=== PATIENT | male | born 1960 | race Caucasian/White ===

== ENCOUNTER 2019-03-02 06:20 | Day surgery (SDC) | payer BC ==
[~2019-03-02] VITALS: Ht 175.3 cm; Wt 88.0 kg
[~2019-03-02 06:20] MED LIST: ALLO300T PO; ATOR10TA PO; CHOL10003 PO; CYAN1TAB29 PO; LISI5TAB7 PO; MULT-658 PO; PANT40TA5 PO
[2019-03-02] MEDS ORDERED: LACTATED RINGERS 1,000 ML IV SCH ×2 (06:28→08:39)
[2019-03-02 06:31] VITALS: BP 133/87
[2019-03-02] MEDS ORDERED: BUPIVACAINE/PF-EPI 0.5% 1:200K ONE (06:58)
[2019-03-02] MEDS ORDERED: MIDAZOLAM 1 MG/ML, 2ML ONE (07:11)
[2019-03-02] MEDS ORDERED: FENTANYL PF 250 MCG/5ML ONE (07:11)
[2019-03-02] MEDS ORDERED: PROPOFOL 50 ML ONE (07:11)
[2019-03-02] MEDS ORDERED: CEFAZOLIN 1,000 MG ONE (07:24)
[2019-03-02] MEDS ORDERED: DEXAMETHASONE 4 MG/ML, 1ML ONE (07:24)
[2019-03-02] MEDS ORDERED: SUCCINYLCHOLINE 20 MG/ML, 10ML ONE (07:24)
[2019-03-02] MEDS ORDERED: ONDANSETRON 2MG/ML, 2ML ONE (07:24)
[2019-03-02] MEDS ORDERED: ROCURONIUM 10 MG/ML,10ML ONE (07:24)
[2019-03-02] MEDS ORDERED: GLYCOPYRROLATE 0.2MG/1ML, 5ML ONE (07:24)
[2019-03-02] MEDS ORDERED: EPHEDRINE 50 MG/ML, 1ML IM PRN (08:00)
[2019-03-02] MEDS ORDERED: MEPERIDINE/PF 25MG/0.5ML IVPush PRN (08:00)
[2019-03-02] MEDS ORDERED: DIPHENHYDRAMINE 50 MG/ML, 1ML IVPush PRN (08:00)
[2019-03-02] MEDS ORDERED: PROMETHAZINE 25 MG SUPP PR PRN (08:00)
[2019-03-02] MEDS ORDERED: METOPROLOL 1 MG/ML, 5ML IV PRN (08:00)
[2019-03-02] MEDS ORDERED: ONDANSETRON 2MG/ML, 2ML IV PRN (08:00)
[2019-03-02] MEDS ORDERED: PROMETHAZINE 25 MG/ML, 1ML IV PRN (08:00)
[2019-03-02] MEDS ORDERED: hydrALAzine 20 MG/ML, 1ML IV PRN (08:00)
[2019-03-02] MEDS ORDERED: MIDAZOLAM 1 MG/ML, 2ML IV PRN (08:00)
[2019-03-02] MEDS ORDERED: ONDANSETRON ODT 8 MG PO PRN (08:00)
[2019-03-02] MEDS ORDERED: MORPHINE SULFATE 4 MG/ML, 1ML IVPush PRN (08:00)
[2019-03-02] MEDS ORDERED: EPHEDRINE 50 MG/ML, 1ML IVPush PRN (08:00)
[2019-03-02] MEDS ORDERED: PROMETHAZINE 12.5 MG SUPP PR PRN (08:00)
[2019-03-02] MEDS: FENTANYL PF 100 MCG/2ML IV PRN ×4 (08:50→09:10)
[2019-03-02] MEDS ORDERED: FENTANYL PF 100 MCG/2ML ONE (08:50)
[2019-03-02] MEDS ORDERED: OXYcodone 5 MG/5 ML ORAL.SOL UDC ONE ×2 (08:50→14:32)
[2019-03-02] MEDS ORDERED: KETOROLAC 30 MG/1 ML IVPush PRN (09:00)
[2019-03-02] MEDS ORDERED: ONDANSETRON 2MG/ML, 2ML IVPush PRN (09:00)
[2019-03-02] MEDS ORDERED: morphine SULFATE 10 MG/ML, 1ML IVPush PRN (09:00)
[2019-03-02] MEDS ORDERED: HYDROcodone/APAP 7.5-325MG/15ML UDC PO PRN ×2 (09:00)
[2019-03-02] MEDS: OXYcodone 5 MG/5 ML ORAL.SOL UDC PO PRN ×2 (09:00→14:33)
== END 2019-03-02 14:55 | disposition home or self-care (01) ==
LOC: OUT 06:20 → UNDOADMOB 08:39 → ORIP 08:39 → OUT 14:55
PROVIDERS: ATTEND Thoracic Surgery (Cardiothoracic Vascular Surgery)
DX: K44.9 Diaphragmatic hernia without obstruction or gangrene (principal); K21.9 Gastro-esophageal reflux disease without esophagitis; K66.0 Peritoneal adhesions (postprocedural) (postinfection); Z98.84 Bariatric surgery status; E78.00 Pure hypercholesterolemia, unspecified; M10.9 Gout, unspecified; G40.909 Epilepsy, unspecified, not intractable, without status epilepticus; G47.30 Sleep apnea, unspecified; Z79.899 Other long term (current) drug therapy; Z88.8 Allergy status to other drugs, medicaments and biological substances; Z91.013 Allergy to seafood; Z72.89 Other problems related to lifestyle; Z87.891 Personal history of nicotine dependence; Z98.890 Other specified postprocedural states; Z80.3 Family history of malignant neoplasm of breast; Z82.49 Family history of ischemic heart disease and other diseases of the circulatory system; Z83.3 Family history of diabetes mellitus
CPT/HCPCS: 43280; J0330; J0690; J1100; J1885; J2250; J2405; J2704; J3010; J7120

== ENCOUNTER 2019-03-03 14:11 | Emergency (ER) | payer BC ==
[~2019-03-03] VITALS: Ht 182.9 cm; Wt 90.5 kg
[2019-03-03 14:16] VITALS: BP 142/90
--- NOTE | 2019-03-03 14:30 | NUR ---
ERP AT NOW.
--- NOTE | 2019-03-03 14:30 | NUR ---
ERP RECOMMENDED THAT PT LEAVE CATHETER INTACT FOR A COUPLE DAYS. Addendum: 03/03/19 at 1431 by HBENSON PT HAS F/U APPT TOMORROW.
--- NOTE | 2019-03-03 14:32 | NUR ---
PT HAD HIATAL HERNIA SURGERY. LAP SITES TO ABD X5 WITH GAUZE/TEGADERM DRESSINGS CDI.
--- NOTE | 2019-03-03 14:33 | NUR ---
PT AMBULATED OUT OF ED WITH ERP WITHOUT DIFFICULTY.
--- NOTE | 2019-03-03 14:35 | NUR ---
D/C INSTRUCTIONS & F/U APPT RV'WD WITH PT BY ERP.
== END 2019-03-03 14:37 | disposition home or self-care (01) ==
LOC: ED 14:31
DX: T83.091A Other mechanical complication of indwelling urethral catheter, initial encounter (principal)
CPT/HCPCS: 99281